=== PATIENT | female | born 1950 | race Asian ===

== ENCOUNTER → 2017-01-24 | Outpatient (CLI) | payer BC | LOC: BMCIMAGING 14:27 | PROVIDERS: ATTEND Internal Medicine | DX: J40 Bronchitis, not specified as acute or chronic (principal) ==

== ENCOUNTER → 2017-01-31 | Outpatient (CLI) | payer BC | LOC: FIMAGING 14:56 | PROVIDERS: ATTEND Internal Medicine | DX: R91.1 Solitary pulmonary nodule (principal); I25.10 Atherosclerotic heart disease of native coronary artery without angina pectoris ==

== ENCOUNTER → 2017-03-15 | Outpatient (CLI) | payer BC | LOC: BMCIMAGING 14:27 | PROVIDERS: ATTEND Internal Medicine | DX: J40 Bronchitis, not specified as acute or chronic (principal) ==